=== PATIENT | female | born 1960 | race Caucasian/White ===

== ENCOUNTER 2018-10-28 08:50 | Inpatient (IN) | payer MEDICARE, MEDICAID ==
[2018-10-28] MEDS ORDERED: SODIUM CHLORIDE 0.9% 500 ML IV ONE (08:58)
--- NOTE | 2018-10-28 09:09 | Emergency Department Record ---
History of Present Illness - General Chief Complaint: Fall Injury Stated Complaint: FALL LOW BACK PAIN Time Seen by Provider: 10/28/18 08:57 Source: Patient Mode of Arrival: Ambulatory Limitations: No limitations - History of Present Illness Initial Comments: The patient is here due to not feeling well today. The patient has multiple medical issues and lives at the [facility] in assisted living. She normally uses a walker to ambulate and today reportedly had 3 falls due to not feeling well. The patient also was reported to have a fever at home. Presently the patient is mainly complaining of low back pain and a cough. She denies any CABRERA, neck pain, AP, vomiting, or diarrhea. MD Complaint: Fall Onset/Timin -: Hour(s) - Related Data Home Medications Medication Instructions Recorded Confirmed Last Taken Acetaminophen [Mapap] 500 mg PO QID PRN 10/28/18 10/28/18 10/28/18 Albuterol Sulfate [Ventolin Hfa] 1 - 2 puff IH .EVERY 4-6 HOURS PRN 10/28/1810/28/18 Calcium Carbonate [Tums] 500 mg PO BID 10/28/18 10/28/18 10/28/18 Cariprazine HCl [Vraylar] 4.5 mg PO DAILY 10/28/18 10/28/18 10/28/18 Cholecalciferol (Vitamin D3) 2,000 unit PO DAILY 10/28/18 10/28/18 10/28/18 [Vitamin D3] Diphenhydramine HCl [Benadryl] 25 mg PO Q6H 10/28/18 10/28/18 10/28/18 Esomeprazole Magnesium [Nexium] 40 mg PO DAILY 10/28/18 10/28/18 10/28/18 Mesalamine [Delzicol] 800 mg PO TID 10/28/18 10/28/18 10/28/18 Metformin HCl [Metformin HCl ER] 500 mg PO BID 10/28/18 10/28/18 10/28/18 Potassium Chloride [Klor-Con] 10 meq PO DAILY 10/28/18 10/28/18 10/28/18 Syring-Needl,Disp,Insul,0.3 ml 1 each MC BID 10/28/18 10/28/18 10/28/18 [Ulticare Insulin Syringe] Previous Rx's Medication Instructions Recorded Nystatin 1 apply TP BID #15 gm 03/17/16 Allergies Allergy/AdvReac Type Severity Reaction Status Date / Time fish derived Allergy PT UNSURE Verified 10/28/18 09:08 OF REACTION ibuprofen Allergy PT UNSURE Verified 10/28/18 09:08 OF REACTION tetracycline Allergy PT UNSURE Verified 03/17/16 11:30 OF REACTION trolamine salicylate Allergy PT UNSURE Verified 10/28/18 09:08 [From Aspercreme] OF REACTION Review of Systems Constitutional: Denies: Chills, Fever Eyes: Denies: Eye discharge ENT: Denies: Congestion Respiratory: Denies: Cough, Dyspnea Cardiovascular: Denies: Arrhythmia, Chest pain Endocrine: Reports: Fatigue Gastrointestinal: Denies: Nausea Genitourinary: Denies: Dysuria Musculoskeletal: Denies: Arthralgia Skin: Denies: Bruising Past Medical History - SOCIAL HISTORY Smoking Status: Current every day smoker Drug Use: None - RESPIRATORY Hx Respiratory Disorders: Yes Hx COPD: Yes - CARDIOVASCULAR Hx Cardio Disorders: Yes Hx Hypertension: Yes - NEURO Hx Neuro Disorders: No - GI Hx GI Disorders: Yes Hx Ulcer: Yes - Hx Genitourinary Disorders: No - ENDOCRINE Hx Endocrine Disorders: Yes Hx Diabetes: Yes Hx Thyroid Disease: No - MUSCULOSKELETAL Hx Musculoskeletal Disorders: Yes Hx Arthritis: Yes - PSYCH Hx Psych Problems: Yes Hx Behavior Problems: Yes Comment:: BiPolar, Paranoid Schizophrenia, Altered Mentation - HEMATOLOGY/ONCOLOGY Hx Hematology/Oncology Disorders: No Family Medical History Family Hx Comment (NOT TO BE USED IN PLACE OF ITEMS BELOW): unknown Physical Exam - General General Appearance: Alert, Cooperative, No acute distress - Head Head exam: Atraumatic, Normocephalic - Eye Eye exam: Normal appearance, PERRL - ENT ENT exam: Mucous membranes dry - Neck Neck exam: Normal inspection, Full ROM. negative: Tenderness - Respiratory Respiratory exam: Normal lung sounds bilaterally. negative: Respiratory distress - Cardiovascular Cardiovascular Exam: Regular rate, Normal rhythm, Normal heart sounds - GI/Abdominal GI/Abdominal exam: Soft, Normal bowel sounds. negative: Tenderness - Extremities Extremities exam: Pedal edema (chronic.). negative: Normal inspection - Back Back exam: Reports: Vertebral tenderness (lower lumbar.) - Neurological Neurological exam: Alert. negative: Motor sensory deficit Course - Reevaluation(s) Reevaluation #1: The patient is doing better after the breathing tx and 1 liter of IVF. We are waiting on an abdominal CT to R/O volvulus at this time. 10/28/18 11:11 Reevaluation #2: The patient is doing a lot better at this time. She is much more alert and talking well. She does not complain of any new pain or SOB. I did discuss the pneumonia with the patient and caregiver and the need for admission. I also did discuss the case with Aline (MANA[employer]) and she does accept the admission. 10/28/18 12:45 Medical Decision Making - Data Complexity MDM Data: Labs Ordered and/or Reviewed, X-Ray Ordered and/or Reviewed - Lab Data Result diagrams: 10/28/18 08:45 10/28/18 08:45 - Radiology Data Radiology results: Report reviewed (CXR: Neg Head CT: Neg Cervical CT: Neg for acute changes. Lumbar xray: Neg for acute spine changes. Significant colon distenstion with constipation. Abd CT: Neg for volvulus, pos constipation and LLL pneumonia.) Disposition Disposition: Admit Clinical Impression: Pneumonia Qualifiers: Pneumonia type: due to unspecified organism Laterality: left Lung location: lower lobe of lung Qualified Code(s): J18.1 - Lobar pneumonia, unspecified organism Disposition: Still a Patient at [facility] Decision to Admit: Admit from ER Decision to Admit Date: 10/28/18 Decision to Admit Time: 12:47 Accepting Physician: Yamileth Time Discussed w/Accepting Physician: 12:47 Condition: (2) Stable Forms: Patient Portal Access Time of Disposition: 12:47 Quality - Quality Measures Quality Measures: N/A - Blood Pressure Screening View Details: Yes Does Patient Have Any of the Following: Active Dx of HTN Blood Pressure Classification: Hypertensive Reading Systolic Measurement: 143 Diastolic Measurement: 77 Screening for High Blood Pressure: Patient Exclusion, Hx of HTN [G9744]
[2018-10-28] MEDS ORDERED: ACETAMINOPHEN 325 MG TAB PO ONE (09:18)
[2018-10-28 09:33] LABS: HEMATOCRIT 36.8 % (35.0-47.0); HEMOGLOBIN 11.4 gm/dl (11.6-16.0); RED BLOOD COUNT 4.14 M/uL (3.80-5.40); WHITE BLOOD COUNT W/O DIFF 8.4 K/uL (4.2-12.2)
[2018-10-28 09:34] LABS: MEAN CELL VOLUME 88.9 fl (81-97); MEAN CORPUSCULAR HEMOGLOBIN 27.5 pg (27-33); MEAN PLATELET VOLUME 9.6 fl (7.4-10.4); PLATELET COUNT 327 K/uL (130-400); RED CELL DISTRIBUTION WIDTH 16.1 % (11.5-14.5)
[2018-10-28 09:34] LABS: URINE APPEARANCE CLEAR; URINE BILIRUBIN SMALL (NEGATIVE); URINE BLOOD NEGATIVE (NEGATIVE); URINE GLUCOSE (UA) NEGATIVE (NEGATIVE); URINE KETONE 40 mg/dL (NEGATIVE); URINE LEUKOCYTE ESTERASE NEGATIVE (NEGATIVE); URINE NITRITE NEGATIVE (NEGATIVE)
[2018-10-28 09:36] LABS: URINE PROTEIN 300 mg/dL (NEGATIVE)
[2018-10-28 09:37] LABS: URINE COLOR DARK YELLOW
[2018-10-28 09:43] LABS: BLOOD UREA NITROGEN 15 mg/dL (6-20)
[2018-10-28 09:44] LABS: CREATININE 0.5 mg/dL (0.5-0.9); EST GLOMERULAR FILTRATION RATE > 60 mL/min
[2018-10-28 09:45] LABS: ACETONE,SERUM NEGATIVE (NEGATIVE)
[2018-10-28 09:46] LABS: GLUCOSE,RANDOM 209 mg/dL (74-109)
[2018-10-28 09:49] LABS: ALB/GLOB RATIO 0.8 (1.1-1.8); ALBUMIN 3.1 g/dL (4.0-5.0); ALKALINE PHOSPHATASE 63 U/L (35-104); ALT/SGPT 8 U/L (<33); AST/SGOT 13 U/L (10.0-35.0)
[2018-10-28 09:55] LABS: URINE BACTERIA FEW; URINE MUCUS LIGHT; URINE RBC 0 - 2 (NONE SEEN); URINE SQUAMOUS EPITHELIAL CELL 0 - 2 /hpf; URINE WBC 0 - 2 (0-2/hpf)
[2018-10-28] MEDS ORDERED: 0.9 % SODIUM CHLORIDE 1,000 ML BAG IV ONE (09:58)
[2018-10-28] MEDS ORDERED: IPRATROPIUM/ALBUTEROL (0.5MG/3MG) NEB INH ONE (10:12)
[2018-10-28 10:27] LABS: C-REACTIVE PROTEIN 13.93 mg/dL (<0.5)
[2018-10-28 10:57] LABS: ARTERIAL BLOOD GAS BASE EXCESS 4.4 mmol/L (-2 - 3); ARTERIAL BLOOD GAS HCO3 28.9 mmol/L (18-23); ARTERIAL BLOOD GAS PCO2 45.3 mmHg (35-48); ARTERIAL BLOOD GAS pH 7.42 (7.35-7.45); CARBOXYHEMOGLOBIN 3.8 % (0-1.5); O2 HEMOGLOBIN 87.6 % vol (94-99); TOTAL HEMOGLOBIN 10.6 g/dl (11.6-16)
[2018-10-28 10:58] LABS: ALLEN TEST PASS
[2018-10-28] MEDS ORDERED: CEFTRIAXONE 1GM/50ML BAG 1 GM/50 ML BAG IVPB ONE (12:14)
[2018-10-28] MEDS ORDERED: AZITHROMYCIN 500 MG in 0.9 % SODIUM CHLORIDE 250ML 250 ML IVPB ONE (12:14)
[2018-10-28] MEDS ORDERED: POLYETHYLENE GLY 17 GM PACKET PO SCH (14:35)
[2018-10-28] MEDS: IPRATROPIUM/ALBUTEROL (0.5MG/3MG) NEB INH SCH ×3 (15:32→22:07)
[2018-10-28] MEDS: DIVALPROEX SODIUM 500 MG TABLET ER PO SCH (15:56)
[2018-10-28] MEDS: ACETAMINOPHEN 325 MG TAB PO PRN ×2 (15:56→20:47)
[2018-10-28] MEDS ORDERED: MESALAMINE 800 MG PO SCH (16:00)
[2018-10-28] MEDS: CEFTRIAXONE SODIUM 1 GM in 0.9 % SODIUM CHLORIDE 100ML 100 ML IVPB SCH (17:57)
[2018-10-28] MEDS: NICOTINE 21 MG/24 HOUR PATCH TD SCH (17:57)
[2018-10-28] MEDS ORDERED: PNEUM 13-VAL/PF 0.5 ML IM ONE (20:13)
[2018-10-28] MEDS ORDERED: [UNRECOGNIZED DRUG - OTHER] MC SCH (22:00)
[2018-10-28] MEDS ORDERED: ZIPRASIDONE HCL 80 MG PO SCH (22:00)
[2018-10-28] MEDS ORDERED: DOCUSATE SODIUM 100 MG CAPSULE PO SCH (22:00)
[2018-10-28] MEDS: CLONAZEPAM 1MG TABLET PO PRN (22:12)
[2018-10-28] MEDS: MESALAMINE 500 MG CAPSULE.SA PO SCH (22:12)
[2018-10-28] MEDS: METFORMIN ER HCL 500 MG TAB.ER.24H PO SCH (22:12)
[2018-10-28] MEDS: SENNOSIDES/DOCUSATE SODIUM UD CAPSULE PO SCH (22:12)
[2018-10-28] MEDS: LEVEMIR FLEXTOUCH 100 UNIT/ML INSULIN PEN SQ SCH (22:13)
[2018-10-28] MEDS: TIMOLOL MALEATE 0.5% 5ML BTL OPTH SCH (22:38)
[2018-10-29] MEDS: ACETAMINOPHEN 325 MG TAB PO PRN ×2 (02:27→06:23)
[2018-10-29] MEDS: CEFTRIAXONE SODIUM 1 GM in 0.9 % SODIUM CHLORIDE 100ML 100 ML IVPB SCH (02:27)
[2018-10-29] MEDS: DIVALPROEX SODIUM 500 MG TABLET ER PO SCH ×2 (02:29→15:46)
[2018-10-29] MEDS: IPRATROPIUM/ALBUTEROL (0.5MG/3MG) NEB INH SCH ×5 (06:02→21:38)
[2018-10-29] MEDS: PANTOPRAZOLE SODIUM 40 MG TABLET PO SCH (06:24)
[2018-10-29 06:41] LABS: HEMATOCRIT 35.7 % (35.0-47.0); HEMOGLOBIN 10.8 gm/dl (11.6-16.0); MEAN CELL VOLUME 89.3 fl (81-97); MEAN CORPUSCULAR HGB CONC 30.3 g/dl (32-36); MEAN PLATELET VOLUME 9.1 fl (7.4-10.4); PLATELET COUNT 300 K/uL (130-400); WHITE BLOOD COUNT W/O DIFF 8.7 K/uL (4.2-12.2)
[2018-10-29 06:56] LABS: LACTIC ACID 1.1 mmol/L (0.5-2.2)
[2018-10-29 07:01] LABS: ALB/GLOB RATIO 0.8 (1.1-1.8); ALBUMIN 2.9 g/dL (4.0-5.0); ALKALINE PHOSPHATASE 69 U/L (35-104); ALT/SGPT 8 U/L (<33); AST/SGOT 10 U/L (10.0-35.0); BLOOD UREA NITROGEN 13 mg/dL (6-20); CREATININE 0.4 mg/dL (0.5-0.9); EST GLOMERULAR FILTRATION RATE > 60 mL/min; GLUCOSE,RANDOM 157 mg/dL (74-109); TOTAL PROTEIN 6.6 g/dL (6.6-8.7)
[2018-10-29 07:21] LABS: ANISOCYTOSIS 1+; PLATELET ESTIMATE NORMAL (NORMAL)
--- NOTE | 2018-10-29 07:23 | CT SCAN REPORT ---
EXAM: NONCONTRAST CT OF THE BRAIN HISTORY: FALL. TECHNIQUE: Noncontrast CT of the brain was obtained. Comparison: None. FINDINGS: No midline shift, mass effect, or abnormal intra or extraaxial fluid collection. No cerebral edema, focal mass or intracranial hemorrhage detected. Mild diffuse cerebral volume loss, likely age related. The basal cisterns are not effaced. The paranasal sinuses and mastoid air cells are clear. No displaced calvarial fracture. Post surgical change of the right ocular globe. IMPRESSION: NO ACUTE INTRACRANIAL FINDINGS. [facility]: [id number] [facility]
--- NOTE | 2018-10-29 07:28 | CT SCAN REPORT ---
EXAM: NONCONTRAST CT OF THE CERVICAL SPINE HISTORY: FALL, PAIN. TECHNIQUE: Noncontrast CT of the cervical spine was obtained. Comparison: None. FINDINGS: Minimal depression along the T2 superior end plate. Otherwise no evidence of fracture. No dislocation. Multilevel anterior end plate osteophytes and facet joint arthrosis. The visualized upper lungs are clear. The paravertebral soft tissues are within normal limits. Bilateral carotid calcifications. IMPRESSION: 1. MINIMAL AGE INDETERMINATE DEPRESSION OF THE T2 SUPERIOR VERTEBRAL END PLATE ; THIS COULD BE FURTHER CHARACTERIZED WITH MRI IF WARRANTED CLINICALLY. 2. OTHERWISE, NO EVIDENCE OF FRACTURE IN THE CERVICAL SPINE. NO DISLOCATION. 3. MULTILEVEL CERVICAL SPINE DEGENERATIVE CHANGE. J[facility]BER: [id number] [facility]
--- NOTE | 2018-10-29 07:31 | RADIOLOGY REPORT ---
EXAM: LUMBAR SPINE HISTORY: FALL. TECHNIQUE: Three views of the lumbar spine were obtained. FINDINGS: The lumbar vertebral body heights appear maintained. Mild age indeterminate anterior wedging of the lower thoracic vertebral bodies. Intact lumbar vertebral alignment. Lumbar disk space height loss most pronounced at L5-S1. Multilevel facet joint arthrosis. Large volume of stool within the visualized colon. Nonspecific gaseous distention of colonic loops. IMPRESSION: ABOVE. JOB NUMBER: [id number] [facility]
--- NOTE | 2018-10-29 07:34 | RADIOLOGY REPORT ---
EXAM: CHEST, TWO VIEWS HISTORY: FALL. TECHNIQUE: Two views of the chest were obtained. Comparison: Acute chest and abdominal series radiographs 07/09/14. FINDINGS: The cardiac silhouette is within normal size limits. Calcification of the thoracic aorta. No focal pulmonary consolidation. Likely minimal atelectasis in the left lung base. Low inspiratory lung volumes. No significant pleural fluid collection or visible pneumothorax. Small calcific density noted adjacent to the right humeral head, may represent calcific tendinosis. IMPRESSION: NO ACUTE LUNG FINDINGS. JOB NUMBER: [id number] [facility]
[2018-10-29] MEDS: CALCIUM CARBONATE 500 MG TAB.CHEW PO PRN ×2 (07:35→20:10)
--- NOTE | 2018-10-29 07:44 | CT SCAN REPORT ---
EXAM: NONCONTRAST CT OF THE ABDOMEN AND PELVIS HISTORY: ABDOMINAL PAIN, COLONIC DISTENTION ON RADIOGRAPH. TECHNIQUE: Noncontrast CT of the abdomen and pelvis was obtained. Comparison: Lumbar radiograph 10/28/18, acute abdominal series radiographs on . FINDINGS: There is partial occlusion of multiple inferior left lower lobe bronchi with adjacent patchy consolidation in the left lower lobe. Linear consolidations in the right lower lobe most likely represent atelectasis. Mild hepatomegaly. The gallbladder, left adrenal gland, pancreas, and spleen appear unremarkable. Round 12 mm right adrenal gland nodule with relatively low attenuation, suggestive of, but not definitive for lipid rich adrenal adenoma. No hydronephrosis. No intrarenal calculi. Large volume of gas and stool scattered throughout the colon, most prominent stool burden within the rectosigmoid junction, cecum, and ascending colon. The small bowel is nondilated. The stomach is nondilated. No free air or free fluid. No intrapelvic mass. The urinary bladder appears unremarkable. No definite acute osseous findings. Mild height loss of the lower thoracic vertebral bodies, age indeterminate. IMPRESSION: 1. PARTIALLY OCCLUDED LEFT LOWER LOBE BRONCHI WITH ASSOCIATED PATCHY CONSOLIDATION; MAY REPRESENT ASPIRATION WITH ASSOCIATED PNEUMONIA/PNEUMONITIS OR MUCOUS PLUGGING WITH ATELECTASIS. 2. NO ACUTE FINDINGS IN THE ABDOMEN OR PELVIS. 3. LARGE AMOUNT OF SCATTERED GAS AND STOOL THROUGHOUT THE COLON. NO EVIDENCE OF SMALL BOWEL OBSTRUCTION. 4. AGE INDETERMINATE MILD COMPRESSION DEFORMITIES OF THE LOWER THORACIC VERTEBRAL BODIES; IF CLINICALLY INDICATED, THIS COULD BE FURTHER ASSESSED WITH MRI. 5. INDETERMINATE RIGHT ADRENAL GLAND NODULE, FAVORED TO REPRESENT A BENIGN ADENOMA. THIS COULD BE FURTHER CHARACTERIZED WITH MRI WARRANTED CLINICALLY. [facility]BER: [id number] [facility]
--- NOTE | 2018-10-29 08:41 | History & Physical ---
History of Present Illness - Date of Service Date of Service for History & Physical: 10/29/18 - History of Present Illness Admitting Diagnosis: 1. Acute LLL Pneumonia History of Present Illness: 58 year old female patient presented to ED for evaluation of "not feeling well" . Patient reports multiple falls, feeling tired, and reports a cough. Patient lives at the [facility] in assisted living. Patient normally ambulates with a walker and reports 3 falls recently. Patient denies any injury from the fall. Patient also noted a cough and low back pain. Patient denies CABRERA, neck pain, abdominal pain, vomiting, or diarrhea. Patient is poor historian. Patient's past medical history includes: paranoid schizophrenia, bipolar, COPD, 2ppd smoker, HTN, NISHA, peptic ulcer, DM ED Course: WBC 8.4, Hgb 11.4, glucose 209, procal 0.08, lactic acid 1.1, negative acetone, crp 14 UA: ketones, protein, small bili ABG: ph 7.42, p02 56, pCO2 45.3, HCO3 28.[address]: no acute intracranial process Cervical Spine CT: DDD, no acute findings CXR: no acute lung process Lumbar spine xray: multilevel facet joint arthrosis, large stool Abd/pelvic CT: chronic constipation with no obstruction, LLL PNA Rocephin and Zithromax started Duoneb and albuterol nmt IV fluids 10/29/18: Patient sitting in chair, no respiratory distress, oriented to self and situation. Patient had fever throughout the night, negative influenza completed today. While bathing patient, right breast erythema, swelling, and tenderness noted. US evaluation pending. Travel Screening - Travel/Exposure Within Last 30 Days Have you traveled within the last 30 days?: No Location Detail:: unknown- poor historian. - Travel/Exposure Within Last Year Have you traveled outside the [place] in the last year?: No Location Detail:: unkown- poor historian - Additonal Travel Details Have you been exposed to anyone with a communicable illness?: No Exposure Details:: unkown-poor historian - Travel Symptoms Symptom Screening: None Review of Systems Reviewed: No additional complaints except as noted below Constitutional: Reports: Fever, Malaise. Denies: Chills Eyes: Denies: Eye discharge ENT: Denies: Congestion Respiratory: Reports: Cough. Denies: Dyspnea Cardiovascular: Denies: Arrhythmia, Chest pain Endocrine: Reports: Fatigue Gastrointestinal: Denies: Nausea Genitourinary: Denies: Dysuria Musculoskeletal: Reports: Back pain. Denies: Arthralgia Skin: Denies: Bruising Past Medical History - SOCIAL HISTORY Smoking Status: Current every day smoker - RESPIRATORY Hx Respiratory Disorders: Yes Hx COPD: Yes - CARDIOVASCULAR Hx Cardio Disorders: Yes Hx Hypertension: Yes - NEURO Hx Neuro Disorders: No - GI Hx GI Disorders: Yes Hx Ulcer: Yes - Hx Genitourinary Disorders: No - ENDOCRINE Hx Endocrine Disorders: Yes Hx Diabetes: Yes Hx Thyroid Disease: No - MUSCULOSKELETAL Hx Musculoskeletal Disorders: Yes Hx Arthritis: Yes - PSYCH Hx Psych Problems: Yes Hx Behavior Problems: Yes Comment:: BiPolar, Paranoid Schizophrenia, Altered Mentation - HEMATOLOGY/ONCOLOGY Hx Hematology/Oncology Disorders: No Family Medical History Any Significant Family History?: No Family Hx Comment (NOT TO BE USED IN PLACE OF ITEMS BELOW): unknown, pt poor historian. H&P Meds/Allergies - Allergies Allergies: Allergies Allergy/AdvReac Type Severity Reaction Status Date / Time fish derived Allergy PT UNSURE Verified 10/28/18 09:08 OF REACTION ibuprofen Allergy PT UNSURE Verified 10/28/18 09:08 OF REACTION tetracycline Allergy PT UNSURE Verified 03/17/16 11:30 OF REACTION trolamine salicylate Allergy PT UNSURE Verified 10/28/18 09:08 [From Aspercreme] OF REACTION - Home Medications Home Medications Medication Instructions Recorded Confirmed Last Taken Acetaminophen [Mapap] 500 mg PO QID PRN 10/28/18 10/28/18 10/28/18 Albuterol Sulfate [Ventolin Hfa] 1 - 2 puff IH .EVERY 4-6 HOURS PRN 10/28/1810/28/18 Calcium Carbonate [Tums] 500 mg PO BID 10/28/18 10/28/18 10/28/18 Cariprazine HCl [Vraylar] 4.5 mg PO DAILY 10/28/18 10/28/18 10/28/18 Cholecalciferol (Vitamin D3) 2,000 unit PO DAILY 10/28/18 10/28/18 10/28/18 [Vitamin D3] Diphenhydramine HCl [Benadryl] 25 mg PO Q6H 10/28/18 10/28/18 10/28/18 Esomeprazole Magnesium [Nexium] 40 mg PO DAILY 10/28/18 10/28/18 10/28/18 Mesalamine [Delzicol] 800 mg PO TID 10/28/18 10/28/18 10/28/18 Metformin HCl [Metformin HCl ER] 500 mg PO BID 10/28/18 10/28/18 10/28/18 Potassium Chloride [Klor-Con] 10 meq PO DAILY 10/28/18 10/28/18 10/28/18 Syring-Needl,Disp,Insul,0.3 ml 1 each MC BID 10/28/18 10/28/18 10/28/18 [Ulticare Insulin Syringe] Previous Rx's Medication Instructions Recorded Nystatin 1 apply TP BID #15 gm 03/17/16 - Active Medications Active Medications: Current Medications Acetaminophen (Tylenol 325mg) 650 mg PO Q4H PRN PRN Reason: PAIN - MILD(1-4)/FEVER Last Admin: 10/29/18 06:23 Dose: 650 mg Albuterol/Ipratropium (Duoneb) 3 ml INH RESP.Q4H.[facility] Last Admin: 10/29/18 06:02 Dose: 3 ml Calcium Carbonate/Glycine (Tums) 500 mg PO Q4H PRN PRN Reason: INDIGESTION Last Admin: 10/29/18 07:35 Dose: 500 mg Clonazepam (Klonopin) 1 mg PO BID PRN PRN Reason: AGITATION Last Admin: 10/28/18 22:12 Dose: 1 mg Divalproex Sodium (Depakote Er) 1,000 mg PO Q12H [facility] Last Admin: 10/29/18 02:29 Dose: 1,000 mg Furosemide (Lasix) 20 mg PO DAILY [facility] Azithromycin 500 mg/ Sodium (Chloride) 250 mls @ 250 mls/hr IVPB Q24H [facility] Stop: 11/03/18 13:01 Ceftriaxone Sodium 1 gm/ (Sodium Chloride) 100 mls @ 100 mls/hr IVPB Q12H [facility] Stop: 11/02/18 14:36 Last Infusion: 10/29/18 03:30 Dose: Infused Insulin Detemir (Levemir Flextouch) 35 unit SQ QHS [facility] Last Admin: 10/28/18 22:13 Dose: 35 unit Lisinopril (Zestril) 10 mg PO DAILY [facility] Mesalamine (Pentasa) 500 mg PO TID [facility] Last Admin: 10/28/18 22:12 Dose: 500 mg Metformin HCl (Glucophage Xr) 500 mg PO BID [facility] Last Admin: 10/28/18 22:12 Dose: 500 mg Metoprolol Succinate (Toprol Xl) 25 mg PO DAILY [facility] Montelukast Sodium (Singulair) 10 mg PO DAILY [facility] Nicotine (Nicotine 21mg) 1 patch TD Q24H [facility] Last Admin: 10/28/18 17:57 Dose: 1 patch Non-Formulary Medication (Cariprazine Hcl [Vraylar]) 4.5 mg PO DAILY [facility] Non-Formulary Medication (Ziprasidone Hcl [Geodon]) 80 mg PO BID [facility] Last Admin: 10/28/18 22:36 Dose: Not Given [facility]op[facility] Last Admin: 10/29/18 06:24 Dose: 40 mg Polyethylene Glycol (Miralax) 17 gm PO ASDIR [facility] Potassium Chloride (Klor-Con) 10 meq PO DAILY [facility] Risperidone (Risperadol) 2 mg PO QHS [facility] Senna/Docusate Sodium (Senna Plus) 1 each PO BID [facility] Last Admin: 10/28/18 22:12 Dose: 1 each Timolol Maleate (Timoptic) 1 drop OPTH BID [facility] Last Admin: 10/28/18 22:38 Dose: Not Given Physical Exam - Vital Signs Vital Signs: Vital Signs - Last 24 Hrs Temp Pulse Pulse Resp BP BP Pulse Ox 10/29/18 08:16 18 10/29/18 08:00 97.9 F 107 H 16 124/62 92 L 10/29/18 06:25 100.5 F H 10/29/18 06:03 78 16 10/29/18 06:02 74 16 94 L 10/29/18 03:55 101.2 F H 103 H 20 121/63 95 10/29/18 02:25 99.6 F 10/28/18 22:24 88 16 10/28/18 22:08 95 H 86 H 10/28/18 21:50 101.4 F H 10/28/18 20:00 100.6 F H 97 H 20 155/90 93 L 10/28/18 17:40 98 H 32 H 92 L 10/28/18 16:00 99.5 F 100 H 18 123/73 92 L 10/28/18 15:08 22 10/28/18 14:21 100 F H 66 20 130/66 93 L 10/28/18 13:50 98.1 F 101 H 20 160/96 97 10/28/18 11:15 92 L 10/28/18 10:45 102 H 18 10/28/18 10:33 107 H 20 125/69 92 L 10/28/18 10:11 100 F H 10/28/18 09:02 99.2 F 104 H 20 143/77 91 L - General General Appearance: Alert, Cooperative, No acute distress Limitations: No limitations - Head Head exam: Atraumatic, Normocephalic - Eye Eye exam: Normal appearance, PERRL - ENT ENT exam: Mucous membranes moist - Neck Neck exam: Normal inspection, Full ROM. negative: Tenderness - Respiratory Respiratory exam: Normal lung sounds bilaterally. negative: Respiratory distress - Cardiovascular Cardiovascular Exam: Regular rate, Normal rhythm, Normal heart sounds Peripheral Pulses: 2+: Radial (R), Radial (L), Dorsalis Pedis (R), Dorsalis Pedis (L) - GI/Abdominal GI/Abdominal exam: Distended, Hypoactive bowel sounds. negative: Tenderness - Rectal Rectal exam: Deferred - exam: Deferred - Extremities Extremities exam: Pedal edema (chronic.). negative: Normal inspection Image of Full Body: 1 - erythema, pitting, warmth, swelling, tenderness with palpation - Back Back exam: Reports: Vertebral tenderness (lower lumbar.) - Neurological Neurological exam: Alert. negative: Motor sensory deficit - Psychiatric Psychiatric exam: Flat affect - Skin Skin exam: Warm Results - Labs Result Diagrams: 10/29/18 06:20 10/29/18 06:20 Labs Last 24 Hours: Laboratory Results - last 24 hr 10/28/18 10/28/18 10/28/18 08:45 08:45 08:45 WBC 8.4 RBC 4.14 Hgb 11.4 L Hct 36.8 MCV 88.9 MCH 27.5 MCHC 31.0 L RDW 16.1 H Plt Count 327 MPV 9.6 Neutrophils % 77.0 Band Neutrophils % 1.0 Eosinophils % Not Reportable Basophils % Not Reportable Lymphocytes 8.0 L Monocytes 14.0 H Platelet Estimate Anisocytosis Puncture Site pCO2 pO2 HCO3 Oxyhemoglobin ABG pH ABG O2 Saturation ABG Base Excess Eddy Test Carboxyhemoglobin Methemoglobin Total Hemoglobin Actual Respiration Rate FiO2 Sodium 140 Potassium 3.7 Chloride 99 Carbon Dioxide 29.0 Anion Gap 12.0 BUN 15 Creatinine 0.5 Estimated GFR > 60 POC Glucose Random Glucose 209 H Lactic Acid Calcium 8.9 Total Bilirubin 0.40 AST 13 ALT 8 Alkaline Phosphatase 63 C-Reactive Protein 13.93 H Total Protein 7.0 Albumin 3.1 L Globulin 3.9 Albumin/Globulin Ratio 0.8 L Procalcitonin Urine Color Urine Appearance Urine pH Ur Specific [place] Urine Protein Urine Glucose (UA) Urine Ketones Urine Blood Urine Nitrite Urine Bilirubin Urine Urobilinogen Ur Leukocyte Esterase Urine RBC Urine WBC U Non-Squamous Epi Cells Urine Bacteria Urine Mucus Valproic Acid Acetone, Qual Negative 10/28/18 10/28/18 10/28/18 08:45 09:20 10:35 WBC RBC Hgb Hct MCV MCH MCHC RDW Plt Count MPV Neutrophils % Band Neutrophils % Eosinophils % Basophils % Lymphocytes Monocytes Platelet Estimate Anisocytosis Puncture Site Right wrist pCO2 45.3 pO2 56.0 L HCO3 28.9 H Oxyhemoglobin 87.6 L ABG pH 7.42 ABG O2 Saturation 91.0 L ABG Base Excess 4.4 H Eddy Test Pass Carboxyhemoglobin 3.8 H Methemoglobin 0.0 Total Hemoglobin 10.6 L Actual Respiration Rate Not Reportable FiO2 Not Reportable Sodium Potassium Chloride Carbon Dioxide Anion Gap BUN Creatinine Estimated GFR POC Glucose Random Glucose Lactic Acid Calcium Total Bilirubin AST ALT Alkaline Phosphatase C-Reactive Protein Total Protein Albumin Globulin Albumin/Globulin Ratio Procalcitonin Urine Color Dark yellow Urine Appearance Clear Urine pH 5.5 Ur Specific [place] >= 1.030 Urine Protein 300 mg/dl H Urine Glucose (UA) Negative Urine Ketones 40 mg/dl H Urine Blood Negative Urine Nitrite Negative Urine Bilirubin Small H Urine Urobilinogen 1.0 Ur Leukocyte Esterase Negative Urine RBC 0 - 2 Urine WBC 0 - 2 U Non-Squamous Epi Cells 0 - 2 Urine Bacteria Few Urine Mucus Light Valproic Acid 74.7 Acetone, Qual 10/28/18 10/28/18 10/28/18 14:05 17:00 22:03 WBC RBC Hgb Hct MCV MCH MCHC RDW Plt Count MPV Neutrophils % Band Neutrophils % Eosinophils % Basophils % Lymphocytes Monocytes Platelet Estimate Anisocytosis Puncture Site pCO2 pO2 HCO3 Oxyhemoglobin ABG pH ABG O2 Saturation ABG Base Excess Eddy Test Carboxyhemoglobin Methemoglobin Total Hemoglobin Actual Respiration Rate FiO2 Sodium Potassium Chloride Carbon Dioxide Anion Gap BUN Creatinine Estimated GFR POC Glucose 195 H 204 H 211 H Random Glucose Lactic Acid Calcium Total Bilirubin AST ALT Alkaline Phosphatase C-Reactive Protein Total Protein Albumin Globulin Albumin/Globulin Ratio Procalcitonin Urine Color Urine Appearance Urine pH Ur Specific [place] Urine Protein Urine Glucose (UA) Urine Ketones Urine Blood Urine Nitrite Urine Bilirubin Urine Urobilinogen Ur Leukocyte Esterase Urine RBC Urine WBC U Non-Squamous Epi Cells Urine Bacteria Urine Mucus Valproic Acid Acetone, Qual 10/29/18 10/29/18 10/29/18 06:20 06:20 06:20 WBC 8.7 RBC 4.00 Hgb 10.8 L Hct 35.7 MCV 89.3 MCH 27.0 MCHC 30.3 L RDW 16.0 H Plt Count 300 MPV 9.1 Neutrophils % 59.0 Band Neutrophils % 14.0 H Eosinophils % Not Reportable Basophils % Not Reportable Lymphocytes 17.0 Monocytes 10.0 H Platelet Estimate Normal Anisocytosis 1+ Puncture Site pCO2 pO2 HCO3 Oxyhemoglobin ABG pH ABG O2 Saturation ABG Base Excess Eddy Test Carboxyhemoglobin Methemoglobin Total Hemoglobin Actual Respiration Rate FiO2 Sodium 138 Potassium 3.9 Chloride 99 Carbon Dioxide 29.0 Anion Gap 10.0 BUN 13 Creatinine 0.4 L Estimated GFR > 60 POC Glucose Random Glucose 157 H Lactic Acid 1.1 Calcium 8.6 Total Bilirubin 0.30 AST 10 ALT 8 Alkaline Phosphatase 69 C-Reactive Protein Total Protein 6.6 Albumin 2.9 L Globulin 3.7 Albumin/Globulin Ratio 0.8 L Procalcitonin 0.083 Urine Color Urine Appearance Urine pH Ur Specific [place] Urine Protein Urine Glucose (UA) Urine Ketones Urine Blood Urine Nitrite Urine Bilirubin Urine Urobilinogen Ur Leukocyte Esterase Urine RBC Urine WBC U Non-Squamous Epi Cells Urine Bacteria Urine Mucus Valproic Acid Acetone, Qual 10/29/18 07:54 WBC RBC Hgb Hct MCV MCH MCHC RDW Plt Count MPV Neutrophils % Band Neutrophils % Eosinophils % Basophils % Lymphocytes Monocytes Platelet Estimate Anisocytosis Puncture Site pCO2 pO2 HCO3 Oxyhemoglobin ABG pH ABG O2 Saturation ABG Base Excess Eddy Test Carboxyhemoglobin Methemoglobin Total Hemoglobin Actual Respiration Rate FiO2 Sodium Potassium Chloride Carbon Dioxide Anion Gap BUN Creatinine Estimated GFR POC Glucose 172 H Random Glucose Lactic Acid Calcium Total Bilirubin AST ALT Alkaline Phosphatase C-Reactive Protein Total Protein Albumin Globulin Albumin/Globulin Ratio Procalcitonin Urine Color Urine Appearance Urine pH Ur Specific [place] Urine Protein Urine Glucose (UA) Urine Ketones Urine Blood Urine Nitrite Urine Bilirubin Urine Urobilinogen Ur Leukocyte Esterase Urine RBC Urine WBC U Non-Squamous Epi Cells Urine Bacteria Urine Mucus Valproic Acid Acetone, Qual VTE H&P Assessment - Risk for VTE Risk for VTE: Yes Risk Level: Moderate Risk Assessment Date: 10/29/18 Risk Assessment Time: 11:24 VTE Orders Placed or Will Be Placed: Yes Plan - Inpatient Certification Inpatient Certification: Admit to inpatient care: Based on my medical assessment, after consideration of patient's risk factors (age, co-morbidities and patient presenting symptoms and acuity), I expect that this patient will remain in the hospital greater than or equal to two midnights and that the services needed warrant inpatient care because: Patient Risk Factors: [age, pneumonia, fever, oxygen requirements] Estimated length of stay: The patient may reasonably be expected to be discharged or transferred to a hospital within 48-96 hours after admission to [facility]. Services needed: [IV antibiotics, IV fluids, supplemental oxygen, serial lab monitoring, pain control] Post hospital care (if known): [] I certify that my determination is in accordance with my understanding of Medicare requirements for reasonable and necessary inpatient services. 10/29/18 11:24 - Detailed Diagnosis and Plan (1) Pneumonia Current Visit: Yes Status: Acute Qualifiers: Pneumonia type: due to unspecified organism Laterality: left Lung location: lower lobe of lung Qualified Code(s): J18.1 - Lobar pneumonia, unspecified organism Base Code: J18.9 - PNEUMONIA, UNSPECIFIED ORGANISM Comment: 10/29/18: -Abd/pelvic CT: LLL infiltrates -Zithromax 500mg IVPB q24h and Rocephin 1gm IVPB q12h started in ED -Will switch to Vanco to also cover breast abscess -Blood cultures pending -Febrile over the past 24 hours, tyelnol prn -Procalcitonin 0.08, lactic acid 1.1 -Negative influenza -Supplemental oxygen to keep pulse ox >92% (2) Breast abscess Current Visit: Yes Status: Acute Base Code: N61.1 - ABSCESS OF THE BREAST AND NIPPLE Comment: 10/29/18: -Right breast abscess noted, erythema, tenderness, pitting, and swelling noted of entire breast. Patient reports symptoms x 4-5 days -US pending -Vanco IVPB -Dexter 5/325 q6h prn pain -Consider gen surg consult (3) Chronic constipation Current Visit: Yes Status: Acute Base Code: K59.09 - OTHER CONSTIPATION Comment: 10/29/18: -Imaging indicates chronic constipation with large stool noted in colon at this time -Abd distention on exam -Colace BID -Miralax daily -Senna daily -Encourage PO fluids (4) Diabetes Current Visit: No Status: Acute Base Code: E11.9 - TYPE 2 DIABETES MELLITUS WITHOUT COMPLICATIONS Comment: 10/29/18: -Continue home medications of Levemir and metformin -Accucheck ACHS (5) DVT prophylaxis Current Visit: Yes Status: Acute Base Code: [id number] - Comment: 10/29/18: -Moderate risk due to hospitalization, illness, decreased ambulation -Lovenox 40mg SQ daily (6) Full code status Current Visit: Yes Status: Acute Base Code: Z78.9 - OTHER SPECIFIED HEALTH STATUS Comment: 10/29/18: -Full code status
[2018-10-29] MEDS: BREO (FLUTICASONE/VILANTEROL) 200MCG/25MCG INHALER INH SCH (10:11)
[2018-10-29 10:17] LABS: INFLUENZA A NEGATIVE (NEGATIVE); INFLUENZA B NEGATIVE (NEGATIVE)
[2018-10-29] MEDS: POTASSIUM CHLORIDE 10 MEQ TAB PO SCH (10:47)
[2018-10-29] MEDS: METFORMIN ER HCL 500 MG TAB.ER.24H PO SCH ×2 (10:47→21:23)
[2018-10-29] MEDS: MESALAMINE 500 MG CAPSULE.SA PO SCH ×3 (10:47→21:23)
[2018-10-29] MEDS: MONTELUKAST SODIUM 10MG TABLET PO SCH (10:47)
[2018-10-29] MEDS: FUROSEMIDE 20 MG TABLET PO SCH (10:47)
[2018-10-29] MEDS: SENNOSIDES/DOCUSATE SODIUM UD CAPSULE PO SCH ×2 (10:47→21:23)
[2018-10-29] MEDS: CARIPRAZINE HCL 4.5 MG PO SCH (10:47)
[2018-10-29] MEDS: LISINOPRIL 10 MG TABLET PO SCH (10:47)
[2018-10-29] MEDS: POLYETHYLENE GLY 17 GM PACKET PO SCH (10:48)
[2018-10-29] MEDS: EZETIMIBE 10 MG TABLET PO SCH (10:48)
[2018-10-29] MEDS: METOPROLOL SUCC 25 MG TAB.ER PO SCH (10:48)
[2018-10-29] MEDS: TIMOLOL MALEATE 0.5% 5ML BTL OPTH SCH ×2 (10:59→23:00)
[2018-10-29] MEDS: HYDROCODONE/APAP 5/325MG TABLET PO PRN (11:00)
[2018-10-29] MEDS: ENOXAPARIN 40 MG/0.4 ML SYR SQ SCH (12:47)
[2018-10-29] MEDS ORDERED: AZITHROMYCIN 500 MG in 0.9 % SODIUM CHLORIDE 250ML 250 ML IVPB SCH (13:00)
[2018-10-29] MEDS: WATER IVPB SCH ×2 (14:38)
[2018-10-29] MEDS: DEXTROSE 5% IVPB SCH ×2 (14:38)
[2018-10-29] MEDS: VANCOMYCIN HCL IVPB SCH ×2 (14:38)
[2018-10-29] MEDS: NICOTINE 21 MG/24 HOUR PATCH TD SCH (15:46)
[2018-10-29] MEDS ORDERED: ONDANSETRON 4 MG ODT TABLET SL PRN (20:08)
[2018-10-29] MEDS ORDERED: CALCIUM CARBONATE 500 MG TAB.CHEW PO PRN (20:08)
[2018-10-29] MEDS: RISPERIDONE 1 MG TABLET PO SCH (21:23)
[2018-10-29] MEDS: LEVEMIR FLEXTOUCH 100 UNIT/ML INSULIN PEN SQ SCH (21:25)
[2018-10-29] MEDS: LATANOPROST 0.005% OPTH SOLUTION 2.5ML BOTTLE OPTH SCH (23:00)
[2018-10-30] MEDS: VANCOMYCIN HCL IVPB SCH ×2 (02:09)
[2018-10-30] MEDS: DEXTROSE 5% IVPB SCH ×2 (02:09)
[2018-10-30] MEDS: WATER IVPB SCH ×2 (02:09)
[2018-10-30] MEDS: TIMOLOL MALEATE 0.5% 5ML BTL OPTH SCH ×3 (02:29→22:06)
[2018-10-30 06:19] LABS: HEMATOCRIT 34.4 % (35.0-47.0); HEMOGLOBIN 10.6 gm/dl (11.6-16.0); MEAN CELL VOLUME 88.2 fl (81-97); MEAN CORPUSCULAR HGB CONC 30.8 g/dl (32-36); MEAN PLATELET VOLUME 8.6 fl (7.4-10.4); PLATELET COUNT 307 K/uL (130-400); RED CELL DISTRIBUTION WIDTH 15.6 % (11.5-14.5); WHITE BLOOD COUNT W/O DIFF 7.7 K/uL (4.2-12.2)
[2018-10-30 06:28] LABS: MEAN CORPUSCULAR HEMOGLOBIN 27.1 pg (27-33)
[2018-10-30 06:34] LABS: BLOOD UREA NITROGEN 13 mg/dL (6-20); CREATININE 0.3 mg/dL (0.5-0.9); EST GLOMERULAR FILTRATION RATE > 60 mL/min; GLUCOSE,RANDOM 158 mg/dL (74-109)
[2018-10-30 06:49] LABS: ANISOCYTOSIS 1+; OVALOCYTES 1+; PLATELET ESTIMATE NORMAL (NORMAL)
[2018-10-30] MEDS: UMECLIDINIUM BROMIDE (INCRUSE) 62.5MCG IH SCH ×2 (06:56→18:05)
[2018-10-30] MEDS: IPRATROPIUM/ALBUTEROL (0.5MG/3MG) NEB INH SCH ×5 (06:56→22:15)
[2018-10-30] MEDS: PANTOPRAZOLE SODIUM 40 MG TABLET PO SCH (07:21)
--- NOTE | 2018-10-30 08:16 | ULTRASOUND REPORT ---
RESULT: BIRAD 3 = PROBABLY BENIGN - SHORT TERM FOLLOW-UP IMAGING SUGGESTED EXAM: COMPLETE RIGHT BREAST ULTRASOUND HISTORY: THIS IS A 58-YEAR-OLD FEMALE WITH PAIN, SWELLING, AND REDNESS WITHIN THE RIGHT BREAST. PATIENT BROUGHT IN FROM A SENIOR LIVING. ABNORMAL ABDOMINAL CT SCAN DEMONSTRATING A MASS LIKE COLLECTION WITHIN THE INFERIOR RIGHT BREAST WITH DIFFUSE SKIN THICKENING. TECHNIQUE: Sonographic evaluation of the right breast was performed. Comparison: Previous abdominal CT scan dated 10/28/18. FINDINGS: There is diffuse skin thickening. There is a large complex heterogeneous fluid collection within the subareolar region of the right breast measuring 6.3 x 3.2 x 4.3 cm. There is surrounding hyperemia and edema. No discrete masses identified. IMPRESSION: 1. FINDINGS CONSISTENT WITH A LARGE ABSCESS WITHIN THE SUBAREOLAR REGION OF THE RIGHT BREAST WITH SURROUNDING SOFT TISSUE EDEMA AND SKIN THICKENING. THE ABSCESS MEASURES 6.3 X 3.2 X 4.3 CM. SURGICAL CONSULTATION IS RECOMMENDED INCISION AND DRAINAGE MAY BE REQUIRED. SHORT TERM FOLLOW-UP ULTRASOUND IS ALSO RECOMMENDED TO CONFIRM RESOLUTION. 2. A PRELIMINARY REPORT WAS PHONED TO THE PATIENT'S NURSE PARI AT 3:10 P.M. ON 10/29/18. JOB NUMBER: [id number] MTDD
[2018-10-30] MEDS ORDERED: MAGNESIUM HYDROXIDE 30 ML UDC PO PRN (09:13)
--- NOTE | 2018-10-30 09:24 | Physician Progress Note ---
Subjective - Date Date of Physician Progress Note: 10/30/18 Objective - Vital Signs Vital Signs: Vital Signs - Last 24 Hrs Temp Pulse Pulse Resp BP Pulse Ox 10/30/18 07:33 20 10/30/18 04:00 97.5 F L 96 H 20 155/85 93 L 10/29/18 21:38 104 H 24 85 L 10/29/18 20:00 97.5 F L 110 H 20 138/103 91 L 10/29/18 18:02 94 H 18 97 10/29/18 16:00 97.5 F L 98 H 16 154/94 94 L 10/29/18 10:19 100 H 18 91 L - General General Appearance: Alert, Cooperative, No acute distress Limitations: Altered mental status (per her baseline) - Head Head exam: Atraumatic, Normocephalic - Eye Eye exam: Normal appearance, PERRL - ENT ENT exam: Mucous membranes moist - Neck Neck exam: Normal inspection, Full ROM. negative: Tenderness - Respiratory Respiratory exam: Decreased breath sounds. negative: Respiratory distress - Cardiovascular Cardiovascular Exam: Regular rate, Normal rhythm, Normal heart sounds Peripheral Pulses: 2+: Radial (R), Radial (L), Dorsalis Pedis (R), Dorsalis Pedis (L) - GI/Abdominal GI/Abdominal exam: Distended, Hypoactive bowel sounds. negative: Tenderness - Rectal Rectal exam: Deferred - exam: Deferred - Extremities Extremities exam: Pedal edema (chronic.). negative: Normal inspection - Back Back exam: Reports: Vertebral tenderness (lower lumbar.) - Neurological Neurological exam: Alert. negative: Motor sensory deficit - Psychiatric Psychiatric exam: Flat affect - Skin Skin exam: Warm Type of lesion: Abscess (right breast erythema, pitting, purulent fluid-filled wheels noted around nipple) Assessment and Plan - Assessment and Plan (1) Pneumonia Current Visit: Yes Status: Acute Qualifiers: Pneumonia type: due to unspecified organism Laterality: left Lung location: lower lobe of lung Qualified Code(s): J18.1 - Lobar pneumonia, unspecified organism Base Code: J18.9 - PNEUMONIA, UNSPECIFIED ORGANISM Comment: 10/30/18: -Abd/pelvic CT: LLL infiltrates -Zithromax 500mg IVPB q24h and Rocephin 1gm IVPB q12h started in ED -Will switch to Vanco to also cover breast abscess -Blood cultures pending -Afebrile over the past 24 hours, tyelnol prn -WBC remains normal -Negative influenza -Supplemental oxygen to keep pulse ox >92% (2) Breast abscess Current Visit: Yes Status: Acute Base Code: N61.1 - ABSCESS OF THE BREAST AND NIPPLE Comment: 10/30/18: -Right breast abscess noted, erythema, tenderness, pitting, and swelling noted of entire breast. Patient reports symptoms x 4-5 days -US: 6.3cm x 3.2cm x 4.3cm abcess noted on right breast -Vanco IVPB, pharmacy to dose -Consulted Dr. Esteban (general surgery), will plan to I&D breast on Friday with Dr. Leavitt at [facility] -C[place]well 5/325 q6h prn pain (3) Chronic constipation Current Visit: Yes Status: Acute Base Code: K59.09 - OTHER CONSTIPATION Comment: 10/30/18: -Imaging indicates chronic constipation with large stool noted in colon at this time -Abd distention on exam -Colace BID -Miralax BID -Senna BID -Adding Milk of Mag and suppository -Encourage PO fluids (4) Diabetes Current Visit: No Status: Acute Base Code: E11.9 - TYPE 2 DIABETES MELLITUS WITHOUT COMPLICATIONS Comment: 10/30/18: -Continue home medications of Levemir and metformin -Accucheck ACHS (5) DVT prophylaxis Current Visit: Yes Status: Acute Base Code: [id number] - Comment: 10/30/18: -Moderate risk due to hospitalization, illness, decreased ambulation -Lovenox 40mg SQ daily (6) Full code status Current Visit: Yes Status: Acute Base Code: Z78.9 - OTHER SPECIFIED HEALTH STATUS Comment: 10/30/18: -Full code status Results - Labs Result Diagrams: 10/30/18 06:07 10/30/18 06:07 Labs Last 24 Hours: Laboratory Results - last 24 hr 10/29/18 10/29/18 10/29/18 09:04 09:53 11:23 WBC RBC Hgb Hct MCV MCH MCHC RDW Plt Count MPV Neutrophils % Band Neutrophils % Eosinophils % Basophils % Lymphocytes Monocytes Platelet Estimate Anisocytosis Ovalocytes Sodium Potassium Chloride Carbon Dioxide Anion Gap BUN Creatinine Estimated GFR POC Glucose 220 H Random Glucose Calcium Specimen Type Cancelled Nasal Influenza A PCR Cancelled Nasal Influenza B PCR Cancelled Influenza Type A Ag Negative Influenza Type B Ag Negative 10/29/18 10/29/18 10/30/18 19:01 21:43 06:07 WBC 7.7 RBC 3.90 Hgb 10.6 L Hct 34.4 L MCV 88.2 MCH 27.1 MCHC 30.8 L RDW 15.6 H Plt Count 307 MPV 8.6 Neutrophils % 74.0 Band Neutrophils % 5.0 Eosinophils % Not Reportable Basophils % Not Reportable Lymphocytes 10.0 L Monocytes 11.0 H Platelet Estimate Normal Anisocytosis 1+ Ovalocytes 1+ Sodium Potassium Chloride Carbon Dioxide Anion Gap BUN Creatinine Estimated GFR POC Glucose 163 H 250 H Random Glucose Calcium Specimen Type Nasal Influenza A PCR Nasal Influenza B PCR Influenza Type A Ag Influenza Type B Ag 10/30/18 10/30/18 06:07 07:46 WBC RBC Hgb Hct MCV MCH MCHC RDW Plt Count MPV Neutrophils % Band Neutrophils % Eosinophils % Basophils % Lymphocytes Monocytes Platelet Estimate Anisocytosis Ovalocytes Sodium 135 L Potassium 3.9 Chloride 95 L Carbon Dioxide 29.0 Anion Gap 11.0 BUN 13 Creatinine 0.3 L Estimated GFR > 60 POC Glucose 192 H Random Glucose 158 H Calcium 8.8 Specimen Type Nasal Influenza A PCR Nasal Influenza B PCR Influenza Type A Ag Influenza Type B Ag DVT/PE Assessment - Risk for VTE Risk for VTE: No Risk Level: Moderate Risk Assessment Date: 10/29/18 Risk Assessment Time: 11:24 VTE Orders Placed or Will Be Placed: Yes - Active Medicaitons Current Medications: Current Medications Acetaminophen (Tylenol 325mg) 650 mg PO Q4H PRN PRN Reason: PAIN - MILD(1-4)/FEVER Last Admin: 10/29/18 06:23 Dose: 650 mg Hydrocodone Bitart/Acetaminophen ([place] 5mg/325mg) 1 each PO Q6H PRN PRN Reason: PAIN - MILD TO MODERATE (1-7) Last Admin: 10/29/18 11:00 Dose: 1 each Albuterol/Ipratropium (Duoneb) 3 ml INH RESP.Q4H.WA ADOLFO Last Admin: 10/30/18 06:56 Dose: Not Given Calcium Carbonate/Glycine (Tums) 500 mg PO Q4H PRN PRN Reason: INDIGESTION Last Admin: 10/29/18 20:10 Dose: 500 mg Clonazepam (Klonopin) 1 mg PO BID PRN PRN Reason: AGITATION Last Admin: 10/28/18 22:12 Dose: 1 mg Divalproex Sodium (Depakote Er) 1,000 mg PO Q12H [facility] Last Admin: 10/29/18 15:46 Dose: 1,000 mg Ezetimibe (Zetia) 10 mg PO DAILY [facility] Last Admin: 10/29/18 10:48 Dose: 10 mg Enoxaparin Sodium (Lovenox) 40 mg SQ DAILY [facility] Last Admin: 10/29/18 12:47 Dose: 40 mg Furosemide (Lasix) 20 mg PO DAILY [facility] Last Admin: 10/29/18 10:47 Dose: 20 mg Vancomycin HCl 1,250 mg/ (Dextrose) 250 mls @ 125 mls/hr IVPB Q12H [facility] Stop: 11/03/18 14:01 Last Admin: 10/30/18 02:09 Dose: 125 mls/hr Insulin Detemir (Levemir Flextouch) 35 unit SQ QHS [facility] Last Admin: 10/29/18 21:25 Dose: 35 unit Latanoprost (Xalatan) 1 drop OPTH QHS [facility] Last Admin: 10/29/18 23:00 Dose: 1 drop Lisinopril (Zestril) 10 mg PO DAILY [facility] Last Admin: 10/29/18 10:47 Dose: 10 mg Magnesium Hydroxide (Milk Of Magnesium) 30 ml PO DAILY PRN PRN Reason: INDIGESTION Mesalamine (Pentasa) 500 mg PO TID [facility] Last Admin: 10/29/18 21:23 Dose: 500 mg Metformin HCl (Glucophage Xr) 500 mg PO BID [facility] Last Admin: 10/29/18 21:23 Dose: 500 mg Metoprolol Succinate (Toprol Xl) 25 mg PO DAILY [facility] Last Admin: 10/29/18 10:48 Dose: 25 mg Montelukast Sodium (Singulair) 10 mg PO DAILY [facility] Last Admin: 10/29/18 10:47 Dose: 10 mg Nicotine (Nicotine 21mg) 1 patch TD Q24H [facility] Last Admin: 10/29/18 15:46 Dose: 1 patch Non-Formulary Medication (Cariprazine Hcl [Vraylar]) 4.5 mg PO DAILY [facility] Last Admin: 10/29/18 10:47 Dose: 4.5 mg Ondansetron HCl (Zofran Odt) 4 mg SL Q8H PRN PRN Reason: NAUSEA/VOMITING Last Admin: 10/29/18 20:11 Dose: 4 mg Pantoprazole Sodium (Protonix) 40 mg PO DAILYAC [facility] Last Admin: 10/30/18 07:21 Dose: 40 mg Polyethylene Glycol (Miralax) 17 gm PO DAILY [facility] Last Admin: 10/29/18 10:48 Dose: 17 gm Potassium Chloride (Klor-Con) 10 meq PO DAILY [facility] Last Admin: 10/29/18 10:47 Dose: 10 meq Risperidone (Risperadol) 2 mg PO QHS [facility] Last Admin: 10/29/18 21:23 Dose: 2 mg Senna/Docusate Sodium (Senna Plus) 1 each PO BID [facility] Last Admin: 10/29/18 21:23 Dose: 1 each Timolol Maleate (Timoptic) 1 drop OPTH BID [facility] Last Admin: 10/30/18 02:29 Dose: Not Given Vitamin D (Vitamin D3) 2,000 unit PO DAILY [facility] AMI Plan - Labs Result Diagrams: 10/30/18 06:07 10/30/18 06:07
[2018-10-30] MEDS: CHOLECALCIFEROL 1,000 UNIT TABLET PO SCH (09:34)
[2018-10-30] MEDS: MONTELUKAST SODIUM 10MG TABLET PO SCH (09:35)
[2018-10-30] MEDS: SENNOSIDES/DOCUSATE SODIUM UD CAPSULE PO SCH ×2 (09:35→22:08)
[2018-10-30] MEDS: FUROSEMIDE 20 MG TABLET PO SCH (09:35)
[2018-10-30] MEDS: METFORMIN ER HCL 500 MG TAB.ER.24H PO SCH ×2 (09:35→22:07)
[2018-10-30] MEDS: MESALAMINE 500 MG CAPSULE.SA PO SCH ×3 (09:35→22:08)
[2018-10-30] MEDS: POTASSIUM CHLORIDE 10 MEQ TAB PO SCH (09:35)
[2018-10-30] MEDS: METOPROLOL SUCC 25 MG TAB.ER PO SCH (09:35)
[2018-10-30] MEDS: POLYETHYLENE GLY 17 GM PACKET PO SCH ×3 (09:36→22:12)
[2018-10-30] MEDS: ENOXAPARIN 40 MG/0.4 ML SYR SQ SCH (09:36)
[2018-10-30] MEDS: LISINOPRIL 10 MG TABLET PO SCH (09:36)
[2018-10-30] MEDS: EZETIMIBE 10 MG TABLET PO SCH (09:36)
[2018-10-30] MEDS: CARIPRAZINE HCL 4.5 MG PO SCH (09:45)
[2018-10-30] MEDS: BREO (FLUTICASONE/VILANTEROL) 200MCG/25MCG INHALER INH SCH (09:50)
[2018-10-30] MEDS ORDERED: BISACODYL 10 MG SUPP RC ONE (09:57)
[2018-10-30] MEDS: VANCOMYCIN HCL 1,250 MG in 0.9 % SODIUM CHLORIDE 250ML 250 ML IVPB SCH ×2 (10:56→22:11)
[2018-10-30] MEDS: ACETAMINOPHEN 325 MG TAB PO PRN (11:59)
[2018-10-30] MEDS: CALCIUM CARBONATE 500 MG TAB.CHEW PO PRN (12:00)
[2018-10-30] MEDS: DIVALPROEX SODIUM 500 MG TABLET ER PO SCH ×2 (15:40→20:20)
[2018-10-30] MEDS: NICOTINE 21 MG/24 HOUR PATCH TD SCH (15:41)
[2018-10-30] MEDS: CLONAZEPAM 1MG TABLET PO PRN (15:49)
[2018-10-30] MEDS ORDERED: LISINOPRIL 10 MG TABLET PO ONE (20:40)
[2018-10-30] MEDS ORDERED: HYDRALAZINE 20MG/ML VIAL IV PRN (20:40)
[2018-10-30] MEDS: LATANOPROST 0.005% OPTH SOLUTION 2.5ML BOTTLE OPTH SCH (22:04)
[2018-10-30] MEDS: RISPERIDONE 1 MG TABLET PO SCH (22:10)
[2018-10-30] MEDS: LEVEMIR FLEXTOUCH 100 UNIT/ML INSULIN PEN SQ SCH (22:12)
[2018-10-30] MEDS: HYDROCODONE/APAP 5/325MG TABLET PO PRN (23:36)
[2018-10-31 02:06] LABS: HEMATOCRIT 34.3 % (35.0-47.0); HEMOGLOBIN 10.6 gm/dl (11.6-16.0); MEAN CELL VOLUME 86.6 fl (81-97); MEAN CORPUSCULAR HGB CONC 30.9 g/dl (32-36); MEAN PLATELET VOLUME 8.5 fl (7.4-10.4); PLATELET COUNT 332 K/uL (130-400); RED BLOOD COUNT 3.96 M/uL (3.80-5.40); RED CELL DISTRIBUTION WIDTH 15.4 % (11.5-14.5); WHITE BLOOD COUNT W/O DIFF 8.4 K/uL (4.2-12.2)
[2018-10-31 02:08] LABS: MEAN CORPUSCULAR HEMOGLOBIN 26.7 pg (27-33)
[2018-10-31] MEDS: DIVALPROEX SODIUM 500 MG TABLET ER PO SCH ×2 (02:11→03:15)
[2018-10-31 02:22] LABS: BLOOD UREA NITROGEN 10 mg/dL (6-20); CREATININE 0.3 mg/dL (0.5-0.9); EST GLOMERULAR FILTRATION RATE > 60 mL/min; GLUCOSE,RANDOM 160 mg/dL (74-109)
[2018-10-31 02:42] LABS: ANISOCYTOSIS 1+; PLATELET ESTIMATE NORMAL (NORMAL)
[2018-10-31] MEDS: PANTOPRAZOLE SODIUM 40 MG TABLET PO SCH (06:09)
[2018-10-31] MEDS: IPRATROPIUM/ALBUTEROL (0.5MG/3MG) NEB INH SCH ×2 (06:20→09:39)
[2018-10-31] MEDS: CALCIUM CARBONATE 500 MG TAB.CHEW PO PRN (08:41)
[2018-10-31] MEDS: ENOXAPARIN 40 MG/0.4 ML SYR SQ SCH (09:21)
[2018-10-31] MEDS: LISINOPRIL 10 MG TABLET PO SCH (09:22)
[2018-10-31] MEDS: CHOLECALCIFEROL 1,000 UNIT TABLET PO SCH (09:22)
[2018-10-31] MEDS: SENNOSIDES/DOCUSATE SODIUM UD CAPSULE PO SCH (09:22)
[2018-10-31] MEDS: FUROSEMIDE 20 MG TABLET PO SCH (09:22)
[2018-10-31] MEDS: MONTELUKAST SODIUM 10MG TABLET PO SCH (09:22)
[2018-10-31] MEDS: METFORMIN ER HCL 500 MG TAB.ER.24H PO SCH (09:23)
[2018-10-31] MEDS: EZETIMIBE 10 MG TABLET PO SCH (09:23)
[2018-10-31] MEDS: METOPROLOL SUCC 25 MG TAB.ER PO SCH (09:23)
[2018-10-31] MEDS: MESALAMINE 500 MG CAPSULE.SA PO SCH (09:23)
[2018-10-31] MEDS: POTASSIUM CHLORIDE 10 MEQ TAB PO SCH (09:24)
[2018-10-31] MEDS: TIMOLOL MALEATE 0.5% 5ML BTL OPTH SCH (09:28)
[2018-10-31] MEDS: UMECLIDINIUM BROMIDE (INCRUSE) 62.5MCG IH SCH (09:38)
[2018-10-31] MEDS: BREO (FLUTICASONE/VILANTEROL) 200MCG/25MCG INHALER INH SCH (09:39)
[2018-10-31] MEDS ORDERED: IPRATROPIUM/ALBUTEROL (0.5MG/3MG) NEB INH PRN (09:57)
--- NOTE | 2018-10-31 10:52 | Discharge Summary ---
Providers Discharge Summary Date: 10/31/18 Date of admission: 10/28/18 13:35 Expected Date of Discharge: 10/31/18 Attending physician: GEOVANNI CEBALLOS Primary care physician: GEE DEGROOT M.D. Consults: Dr. Esteban (general surgery) Physical Exam - Vital Signs Vital Signs: Vital Signs - Last 24 Hrs Temp Pulse Pulse Resp BP Pulse Ox 10/31/18 09:43 94 L 10/31/18 09:39 91 H 18 94 L 10/31/18 08:00 97.7 F 92 H 16 171/93 91 L 10/31/18 04:00 97.6 F 93 H 20 170/93 93 L 10/31/18 00:00 97.8 F 89 20 167/91 93 L 10/30/18 22:15 95 H 24 84 L 10/30/18 21:30 100 H 93 L 10/30/18 21:00 95 H 18 10/30/18 20:00 98.5 F 95 H 16 192/105 95 10/30/18 14:00 97.5 F L 106 H 16 161/86 92 L - General General Appearance: Alert, Cooperative, No acute distress Limitations: Altered mental status (per her baseline) - Head Head exam: Atraumatic, Normocephalic - Eye Eye exam: Normal appearance, PERRL - ENT ENT exam: Mucous membranes moist - Neck Neck exam: Normal inspection, Full ROM. negative: Tenderness - Respiratory Respiratory exam: Decreased breath sounds. negative: Respiratory distress - Cardiovascular Cardiovascular Exam: Regular rate, Normal rhythm, Normal heart sounds Peripheral Pulses: 2+: Radial (R), Radial (L), Dorsalis Pedis (R), Dorsalis Pedis (L) - GI/Abdominal GI/Abdominal exam: Distended. negative: Tenderness - Rectal Rectal exam: Deferred - exam: Deferred - Extremities Extremities exam: Pedal edema (chronic.). negative: Normal inspection - Back Back exam: Reports: Vertebral tenderness (lower lumbar.) - Neurological Neurological exam: Alert. negative: Motor sensory deficit - Psychiatric Psychiatric exam: Flat affect - Skin Skin exam: Warm Type of lesion: Abscess (right breast erythema, pitting, purulent fluid-filled wheels noted around nipple, necrotic areas noted today) Hospitalization - Hospitalization Admission Diagnosis: 1. Acute LLL Pneumonia - Problem List/Discharge Diagnosis (1) Pneumonia Status: Acute Discharge Diagnosis: Pneumonia type: due to unspecified organism Laterality: left Lung location: lower lobe of lung Qualified Code(s): J18.1 - Lobar pneumonia, unspecified organism Base Code: J18.9 - PNEUMONIA, UNSPECIFIED ORGANISM Comment: 10/31/18: -Abd/pelvic CT: LLL infiltrates -Will switch to Vanco to also cover breast abscess -Blood cultures pending -Afebrile over the past 24 hours, tyelnol prn -WBC remains normal -Negative influenza -Supplemental oxygen to keep pulse ox >92% (2) Breast abscess Status: Acute Base Code: N61.1 - ABSCESS OF THE BREAST AND NIPPLE Comment: : -Right breast abscess noted, erythema, tenderness, pitting, and swelling noted of entire breast. Patient reports symptoms x 4-5 days -US: 6.3cm x 3.2cm x 4.3cm abcess noted on right breast -Vanco IVPB, pharmacy to dose -New erythema, sloughing skin, and necrotic areas noted today. Consulted Dr. Esteban (general surgery), who accepted admission to [facility] for I&D today -Patient NPO -[place] 5/325 q6h prn pain (3) Chronic constipation Status: Acute Base Code: K59.09 - OTHER CONSTIPATION Comment: 10/31/18: -Imaging indicates chronic constipation with large stool noted in colon at this time -Last BM 10/30/18 -Abd distention on exam -Colace BID -Miralax BID -Senna BID (4) Diabetes Status: Acute Base Code: E11.9 - TYPE 2 DIABETES MELLITUS WITHOUT COMPLICATIONS Comment: 10/31/18: -Continue home medications of Levemir and metformin -Accucheck ACHS (5) Mental health disorder Status: Acute Base Code: F99 - MENTAL DISORDER, NOT OTHERWISE SPECIFIED Comment: 10/31/18: -Bipolar and paranoid schizophrenia at baseline -Patient lives [place] [facility] [place] [facility] [place] and has case management social worker to help with medical care -Significant psychiatric medications per home list, will continue -Unable to fully assess baseline cognitive status, as patient is not willing to answer questions at times (6) DVT prophylaxis Status: Acute Base Code: [id number] - Comment: 10/31/18: -Moderate risk due to hospitalization, illness, decreased ambulation -Lovenox 40mg SQ daily (7) Full code status Status: Acute Base Code: Z78.9 - OTHER SPECIFIED HEALTH STATUS Comment: 10/31: -Full code status - Hospitalization Course Disposition: Acute Care Hospital Transfer Hospital Course: 58 year old female patient presented to ED for evaluation of "not feeling well" . Patient reports multiple falls, feeling tired, and reports a cough. Patient lives at the [facility] in assisted living. Patient normally ambulates with a walker and reports 3 falls recently. Patient denies any injury from the fall. Patient also noted a cough and low back pain. Patient denies CABRERA, neck pain, abdominal pain, vomiting, or diarrhea. Patient is poor historian. Patient's past medical history includes: paranoid schizophrenia, bipolar, COPD, 2ppd smoker, HTN, NISHA, peptic ulcer, DM ED Course: WBC 8.4, Hgb 11.4, glucose 209, procal 0.08, lactic acid 1.1, negative acetone, crp 14 UA: ketones, protein, small bili ABG: ph 7.42, p02 56, pCO2 45.3, HCO3 28.[address]: no acute intracranial process Cervical Spine CT: DDD, no acute findings CXR: no acute lung process Lumbar spine xray: multilevel facet joint arthrosis, large stool Abd/pelvic CT: chronic constipation with no obstruction, LLL PNA Rocephin and Zithromax started Duoneb and albuterol nmt IV fluids 10/29/18: Patient sitting in chair, no respiratory distress, oriented to self and situation. Patient had fever throughout the night, negative influenza completed today. While bathing patient, right breast erythema, swelling, and tenderness noted. US evaluation pending. 10/31/18: Patient sitting in chair, no respiratory distress, oriented to self and situation. Worsening appearance of right breast abscess, with worsening erythema, skin sloughing, and necrosis. Afebrile, WBC not elevated, has been on Vanco IVPB nearly [address] Esteban who accepted admission and will transfer patient to [facility] for surgical I&D. Procedures: Imaging and X-Rays 10/28/18 08:59 CERVICAL SPINE WO CONTRAST [CT] Stat HEAD WO CONTRAST [CT] Stat LUMBAR SPINE / AP LAT [RAD] Stat 10/28/18 09:02 CHEST 2 VIEWS [RAD] Stat 10/28/18 10:59 ABDOMEN/PELVIS WO CONTRAST [CT] Stat 10/29/18 09:45 BREAST COMPLETE RIGHT [US] Stat Abnormal Labs: Abnormal Lab Results 10/28/18 10/28/18 10/28/18 Range/Units 08:45 08:45 08:45 Hgb 11.4 L (11.6-16.0) gm/dl Hct (35.0-47.0) % MCH (27-33) pg MCHC 31.0 L (32-36) g/dl RDW 16.1 H (11.5-14.5) % Band Neutrophils % (0-5) % Lymphocytes 8.0 L (16-45) % Monocytes 14.0 H (0-9) % pO2 (83-108) mmHg HCO3 (18-23) mmol/L Oxyhemoglobin (94-99) % vol ABG O2 Saturation (95-98) % ABG Base Excess (-2 - 3) mmol/L Carboxyhemoglobin (0-1.5) % Total Hemoglobin (11.6-16) g/dl Sodium (136-145) mmol/L Chloride (98-107) mmol/L Carbon Dioxide (22-29) mmol/L Creatinine (0.5-0.9) mg/dL POC Glucose (70-110) mg/dL Random Glucose 209 H (74-109) mg/dL C-Reactive Protein 13.93 H (<0.5) mg/dL Albumin 3.1 L (4.0-5.0) g/dL Albumin/Globulin Ratio 0.8 L (1.1-1.8) Urine Protein (NEGATIVE) Urine Ketones (NEGATIVE) Urine Bilirubin (NEGATIVE) Vancomycin Trough (5.0-10.0) ug/mL 10/28/18 10/28/18 10/28/18 Range/Units 09:20 10:35 14:05 Hgb (11.6-16.0) gm/dl Hct (35.0-47.0) % MCH (27-33) pg MCHC (32-36) g/dl RDW (11.5-14.5) % Band Neutrophils % (0-5) % Lymphocytes (16-45) % Monocytes (0-9) % pO2 56.0 L (83-108) mmHg HCO3 28.9 H (18-23) mmol/L Oxyhemoglobin 87.6 L (94-99) % vol ABG O2 Saturation 91.0 L (95-98) % ABG Base Excess 4.4 H (-2 - 3) mmol/L Carboxyhemoglobin 3.8 H (0-1.5) % Total Hemoglobin 10.6 L (11.6-16) g/dl Sodium (136-145) mmol/L Chloride (98-107) mmol/L Carbon Dioxide (22-29) mmol/L Creatinine (0.5-0.9) mg/dL POC Glucose 195 H (70-110) mg/dL Random Glucose (74-109) mg/dL C-Reactive Protein (<0.5) mg/dL Albumin (4.0-5.0) g/dL Albumin/Globulin Ratio (1.1-1.8) Urine Protein 300 mg/dl H (NEGATIVE) Urine Ketones 40 mg/dl H (NEGATIVE) Urine Bilirubin Small H (NEGATIVE) Vancomycin Trough (5.0-10.0) ug/mL 10/28/18 10/28/18 10/29/18 Range/Units 17:00 22:03 06:20 Hgb 10.8 L (11.6-16.0) gm/dl Hct (35.0-47.0) % MCH (27-33) pg MCHC 30.3 L (32-36) g/dl RDW 16.0 H (11.5-14.5) % Band Neutrophils % 14.0 H (0-5) % Lymphocytes (16-45) % Monocytes 10.0 H (0-9) % pO2 (83-108) mmHg HCO3 (18-23) mmol/L Oxyhemoglobin (94-99) % vol ABG O2 Saturation (95-98) % ABG Base Excess (-2 - 3) mmol/L Carboxyhemoglobin (0-1.5) % Total Hemoglobin (11.6-16) g/dl Sodium (136-145) mmol/L Chloride (98-107) mmol/L Carbon Dioxide (22-29) mmol/L Creatinine (0.5-0.9) mg/dL POC Glucose 204 H 211 H (70-110) mg/dL Random Glucose (74-109) mg/dL C-Reactive Protein (<0.5) mg/dL Albumin (4.0-5.0) g/dL Albumin/Globulin Ratio (1.1-1.8) Urine Protein (NEGATIVE) Urine Ketones (NEGATIVE) Urine Bilirubin (NEGATIVE) Vancomycin Trough (5.0-10.0) ug/mL 10/29/18 10/29/18 10/29/18 Range/Units 06:20 07:54 11:23 Hgb (11.6-16.0) gm/dl Hct (35.0-47.0) % MCH (27-33) pg MCHC (32-36) g/dl RDW (11.5-14.5) % Band Neutrophils % (0-5) % Lymphocytes (16-45) % Monocytes (0-9) % pO2 (83-108) mmHg HCO3 (18-23) mmol/L Oxyhemoglobin (94-99) % vol ABG O2 Saturation (95-98) % ABG Base Excess (-2 - 3) mmol/L Carboxyhemoglobin (0-1.5) % Total Hemoglobin (11.6-16) g/dl Sodium (136-145) mmol/L Chloride (98-107) mmol/L Carbon Dioxide (22-29) mmol/L Creatinine 0.4 L (0.5-0.9) mg/dL POC Glucose 172 H 220 H (70-110) mg/dL Random Glucose 157 H (74-109) mg/dL C-Reactive Protein (<0.5) mg/dL Albumin 2.9 L (4.0-5.0) g/dL Albumin/Globulin Ratio 0.8 L (1.1-1.8) Urine Protein (NEGATIVE) Urine Ketones (NEGATIVE) Urine Bilirubin (NEGATIVE) Vancomycin Trough (5.0-10.0) ug/mL 10/29/18 10/29/18 10/30/18 Range/Units 19:01 21:43 06:07 Hgb 10.6 L (11.6-16.0) gm/dl Hct 34.4 L (35.0-47.0) % MCH (27-33) pg MCHC 30.8 L (32-36) g/dl RDW 15.6 H (11.5-14.5) % Band Neutrophils % (0-5) % Lymphocytes 10.0 L (16-45) % Monocytes 11.0 H (0-9) % pO2 (83-108) mmHg HCO3 (18-23) mmol/L Oxyhemoglobin (94-99) % vol ABG O2 Saturation (95-98) % ABG Base Excess (-2 - 3) mmol/L Carboxyhemoglobin (0-1.5) % Total Hemoglobin (11.6-16) g/dl Sodium (136-145) mmol/L Chloride (98-107) mmol/L Carbon Dioxide (22-29) mmol/L Creatinine (0.5-0.9) mg/dL POC Glucose 163 H 250 H (70-110) mg/dL Random Glucose (74-109) mg/dL C-Reactive Protein (<0.5) mg/dL Albumin (4.0-5.0) g/dL Albumin/Globulin Ratio (1.1-1.8) Urine Protein (NEGATIVE) Urine Ketones (NEGATIVE) Urine Bilirubin (NEGATIVE) Vancomycin Trough (5.0-10.0) ug/mL 10/30/18 10/30/18 10/30/18 Range/Units 06:07 07:46 11:30 Hgb (11.6-16.0) gm/dl Hct (35.0-47.0) % MCH (27-33) pg MCHC (32-36) g/dl RDW (11.5-14.5) % Band Neutrophils % (0-5) % Lymphocytes (16-45) % Monocytes (0-9) % pO2 (83-108) mmHg HCO3 (18-23) mmol/L Oxyhemoglobin (94-99) % vol ABG O2 Saturation (95-98) % ABG Base Excess (-2 - 3) mmol/L Carboxyhemoglobin (0-1.5) % Total Hemoglobin (11.6-16) g/dl Sodium 135 L (136-145) mmol/L Chloride 95 L (98-107) mmol/L Carbon Dioxide (22-29) mmol/L Creatinine 0.3 L (0.5-0.9) mg/dL POC Glucose 192 H 241 H (70-110) mg/dL Random Glucose 158 H (74-109) mg/dL C-Reactive Protein (<0.5) mg/dL Albumin (4.0-5.0) g/dL Albumin/Globulin Ratio (1.1-1.8) Urine Protein (NEGATIVE) Urine Ketones (NEGATIVE) Urine Bilirubin (NEGATIVE) Vancomycin Trough (5.0-10.0) ug/mL 10/30/18 10/30/18 10/31/18 Range/Units 17:19 22:00 01:55 Hgb (11.6-16.0) gm/dl Hct (35.0-47.0) % MCH (27-33) pg MCHC (32-36) g/dl RDW (11.5-14.5) % Band Neutrophils % (0-5) % Lymphocytes (16-45) % Monocytes (0-9) % pO2 (83-108) mmHg HCO3 (18-23) mmol/L Oxyhemoglobin (94-99) % vol ABG O2 Saturation (95-98) % ABG Base Excess (-2 - 3) mmol/L Carboxyhemoglobin (0-1.5) % Total Hemoglobin (11.6-16) g/dl Sodium (136-145) mmol/L Chloride (98-107) mmol/L Carbon Dioxide (22-29) mmol/L Creatinine (0.5-0.9) mg/dL POC Glucose 201 H 175 H (70-110) mg/dL Random Glucose (74-109) mg/dL C-Reactive Protein (<0.5) mg/dL Albumin (4.0-5.0) g/dL Albumin/Globulin Ratio (1.1-1.8) Urine Protein (NEGATIVE) Urine Ketones (NEGATIVE) Urine Bilirubin (NEGATIVE) Vancomycin Trough 15.0 H (5.0-10.0) ug/mL 10/31/18 10/31/18 10/31/18 Range/Units 01:55 01:55 07:30 Hgb 10.6 L (11.6-16.0) gm/dl Hct 34.3 L (35.0-47.0) % MCH 26.7 L (27-33) pg MCHC 30.9 L (32-36) g/dl RDW 15.4 H (11.5-14.5) % Band Neutrophils % 6.0 H (0-5) % Lymphocytes 14.0 L (16-45) % Monocytes 15.0 H (0-9) % pO2 (83-108) mmHg HCO3 (18-23) mmol/L Oxyhemoglobin (94-99) % vol ABG O2 Saturation (95-98) % ABG Base Excess (-2 - 3) mmol/L Carboxyhemoglobin (0-1.5) % Total Hemoglobin (11.6-16) g/dl Sodium 130 L (136-145) mmol/L Chloride 89 L (98-107) mmol/L Carbon Dioxide 32.0 H (22-29) mmol/L Creatinine 0.3 L (0.5-0.9) mg/dL POC Glucose 152 H (70-110) mg/dL Random Glucose 160 H (74-109) mg/dL C-Reactive Protein (<0.5) mg/dL Albumin (4.0-5.0) g/dL Albumin/Globulin Ratio (1.1-1.8) Urine Protein (NEGATIVE) Urine Ketones (NEGATIVE) Urine Bilirubin (NEGATIVE) Vancomycin Trough (5.0-10.0) ug/mL Condition at Discharge: (2) Stable Discharge Medications - Discharge Medications Home Medications: Ambulatory Orders Atorvastatin Calcium [Lipitor] 20 mg PO QHS 07/09/14 [Last Taken 10/28/18] Clotrimazole/Betamethasone Dip [Clotrimazole-Betamethasone Crm] 45 gm TP ASDIR 07/09/14 [Last Taken 10/28/18] Divalproex Sodium [Depakote] 1,000 mg PO BID 07/09/14 [Last Taken 10/28/18] Docusate Sodium [Doc-Q-Lace] 100 mg PO BID 07/09/14 [Last Taken 10/28/18] Ezetimibe [Zetia] 10 mg PO DAILY 07/09/14 [Last Taken 10/28/18] Ferrous Sulfate [Iron] 325 mg PO DAILY 07/09/14 [Last Taken 10/28/18] Fluticasone/Salmeterol 250/50 [Advair 250/50] 1 each IH BID 07/09/14 [Last Taken 10/28/18] Insulin Glargine,Hum.rec.anlog [Lantus] 35 unit SQ QHS 07/09/14 [Last Taken ] Latanoprost 0.005% Opth Gloria [Xalatan] 2.5 ml OP DAILY 07/09/14 [Last Taken 10/28] Lisinopril 10 mg PO DAILY 07/09/14 [Last Taken 10/28/18] Metoprolol Succinate 25 mg PO DAILY 07/09/14 [Last Taken 10/28/18] Montelukast Sodium [Singulair] 10 mg PO DAILY 07/09/14 [Last Taken 10/28/18] Olanzapine [Zyprexa] 20 mg PO QHS 07/09/14 [Last Taken 10/28/18] Polyethylene Glycol 3350 17 gm PO ASDIR 07/09/14 [Last Taken 10/28/18] Risperidone [Risperdal] 2 mg PO QHS 07/09/14 [Last Taken 1 Day Ago ~03/16/16] Sennosides [Senna] 8.6 mg PO BID 07/09/14 [Last Taken 10/28/18] Tiotropium [place] [Spiriva] 18 mcg IH BID 07/09/14 [Last Taken 10/28/18] Ziprasidone HCl [Geodon] 80 mg PO BID 07/09/14 [Last Taken 1 Day Ago ~03/16/16] Clonazepam 1 mg PO BID PRN 12/09/14 [Last Taken 10/28/18] Mesalamine [Asacol Hd] 800 mg PO TID 12/09/14 [Last Taken 10/28/18] Dorzolamide HCl/Timolol Maleat [Dorzolamide-Timolol Eye Drops] 10 ml OP BID 04/18 [Last Taken 10/28/18] Furosemide [Lasix] 20 mg PO DAILY 01/10/15 [Last Taken 10/28/18] Nystatin 1 apply TP BID #15 gm 03/17/16 [Last Taken 10/28/18] Acetaminophen [Mapap] 500 mg PO QID PRN 10/28/18 [Last Taken 10/28/18] Albuterol Sulfate [Ventolin Hfa] 1 - 2 puff IH .EVERY 4-6 HOURS PRN 10/28/18 [ Last Taken 10/28/18] Calcium Carbonate [Tums] 500 mg PO BID 10/28/18 [Last Taken 10/28/18] Cariprazine HCl [Vraylar] 4.5 mg PO DAILY 10/28/18 [Last Taken 10/28/18] Cholecalciferol (Vitamin D3) [Vitamin D3] 2,000 unit PO DAILY 10/28/18 [Last Taken 10/28/18] Diphenhydramine HCl [Benadryl] 25 mg PO Q6H 10/28/18 [Last Taken 10/28/18] Esomeprazole Magnesium [Nexium] 40 mg PO DAILY 10/28/18 [Last Taken 10/28/18] Mesalamine [Delzicol] 800 mg PO TID 10/28/18 [Last Taken 10/28/18] Metformin HCl [Metformin HCl ER] 500 mg PO BID 10/28/18 [Last Taken 10/28/18] Potassium Chloride [Klor-Con] 10 meq PO DAILY 10/28/18 [Last Taken 10/28/18] Syring-Needl,Disp,Insul,0.3 ml [Ulticare Insulin Syringe] 1 each MC BID [Last Taken 10/28/18] Discharge Plan - Discharge Instructions Activity at Discharge: Increase Activity as Tolerated Diet at Discharge: Other (NPO) Additional Instructions: Transfer to [facility] via EMS Quality Measures - Quality Measures Quality Measures: Documentation of Current Medications in Medical Record, Screening for High Blood Pressure and F/U Documented - Current Medications Quality Measure: Measure #130: Documentation of Current Medications Documentation of Current Medications: <Current Medications Documented/Reviewed> [G8427] - Blood Pressure Screening Quality Measure: Screening for High Blood Pressure and Follow-Up Documented Does Patient Have Any of the Following: Active Dx of HTN Blood Pressure Classification: Pre-Hypertensive BP Reading Systolic Measurement: 130 Diastolic Measurement: 66 Screening for High Blood Pressure: Patient Exclusion, Hx of HTN [G9744] - Elder Abuse Suspicion Index EASI Reference Information: Maritza CHAIREZ, Buck C, Wilmar D, Jacqueline Rubio.Development and validation of a tool to assist physicians identification of elder abuse: The Elder Abuse Suspicion Index (EASI ). Journal of Elder Abuse and Neglect, 2008; 20 (3): 276-300.
== END 2018-10-31 11:55 | disposition short-term general hospital (02) | DRG 195 ==
LOC: ER 08:50 → MEDSURG 13:35
PROVIDERS: ADMIT Internal Medicine; ATTEND Internal Medicine
DX: J18.1 Lobar pneumonia, unspecified organism (principal); R50.9 Fever, unspecified; N61.1 Abscess of the breast and nipple; K59.09 Other constipation; I10 Essential (primary) hypertension; J44.9 Chronic obstructive pulmonary disease, unspecified; R41.82 Altered mental status, unspecified; F20.9 Schizophrenia, unspecified; F31.9 Bipolar disorder, unspecified; M19.90 Unspecified osteoarthritis, unspecified site; F17.210 Nicotine dependence, cigarettes, uncomplicated; W19.XXXA Unspecified fall, initial encounter
CPT/HCPCS: 36416; 36600; 70450; 71046; 72100; 72125; 74176; 80048; 80053; 80164; 80202; 81001; 82009; 82375; 82803; 82948; 83605; 84145; 85027; 86140; 87040; 87400; 94640; 94760; 94761; 96365; 96366; 99223; 99233; 99239; 99285; J0456; J0696; J1650; J7050; J7060